=== PATIENT | female | born 2005 | race Two or more races ===

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

== ENCOUNTER 2023-09-15 14:25 | Emergency (ER) | payer OTHER, SELFPAY | END 2023-09-15 15:17 | disposition home or self-care (01) | LOC: BURERS 14:25 | DX: T16.1XXA Foreign body in right ear, initial encounter (principal) | CPT/HCPCS: 69200; 99282 ==

== ENCOUNTER 2023-09-28 15:20 | Emergency (ER) | payer SELFPAY ==
[2023-09-28] MEDS ORDERED: Clotrimazole 1% Cream 15 GM TUBE TOP SCH (16:30)
== END 2023-09-28 16:19 | disposition home or self-care (01) ==
LOC: BURERS 15:20
DX: S30.814A Abrasion of vagina and vulva, initial encounter (principal); W26.8XXA Contact with other sharp object(s), not elsewhere classified, initial encounter
CPT/HCPCS: 87480; 87510; 87660; 99283

== ENCOUNTER 2025-01-22 19:11 | Emergency (ER) | payer MEDICAID, SELFPAY | END 2025-01-22 20:00 | disposition home or self-care (01) | LOC: BURERS 19:11 | DX: Z34.92 Encounter for supervision of normal pregnancy, unspecified, second trimester (principal); Z3A.26 26 weeks gestation of pregnancy | CPT/HCPCS: 99284 ==

== ENCOUNTER 2025-02-07 11:49 | Emergency (ER) | payer MEDICAID, OTHER | END 2025-02-07 12:40 | disposition home or self-care (01) | LOC: BURERS 11:49 | DX: Z34.93 Encounter for supervision of normal pregnancy, unspecified, third trimester (principal); Z3A.29 29 weeks gestation of pregnancy | CPT/HCPCS: 99284 ==

== ENCOUNTER 2025-02-22 17:34 | Emergency (ER) | payer OTHER | END 2025-02-22 18:07 | disposition home or self-care (01) | LOC: BURERS 17:34 | DX: Z34.03 Encounter for supervision of normal first pregnancy, third trimester (principal); Z79.899 Other long term (current) drug therapy | CPT/HCPCS: 99283 ==